=== PATIENT | female | born 1955 | race Asian ===

== ENCOUNTER 2024-12-24 19:13 | Emergency (ER) | payer OTHER ==
[~2024-12-24] VITALS: Ht 149.9 cm; Wt 58.0 kg
[2024-12-24 19:28] VITALS: O2SAT 97
[2024-12-24] MEDS: AMLODIPINE 10MG TABLET PO ONE (20:43)
[2024-12-24] MEDS: METOPROLOL TARTRATE 25MG TABLET PO ONE (20:44)
[2024-12-24] MEDS: ACETAMINOPHEN 325MG TABLET PO ONE (20:47)
[2024-12-24 21:34] VITALS: BP 123/66; PULSE 60; RESP 18; TEMP 36.8; O2SAT 96
== END 2024-12-24 21:45 | disposition home or self-care (01) ==
LOC: ER 19:13
DX: S00.03XA Contusion of scalp, initial encounter (principal); I10 Essential (primary) hypertension; I25.10 Atherosclerotic heart disease of native coronary artery without angina pectoris; Z90.89 Acquired absence of other organs; Z95.1 Presence of aortocoronary bypass graft; W19.XXXA Unspecified fall, initial encounter; Y93.89 Activity, other specified; Y92.89 Other specified places as the place of occurrence of the external cause; Y99.8 Other external cause status
CPT/HCPCS: 99284